=== PATIENT | female | born 1980 | race Caucasian/White ===

== ENCOUNTER → 2016-10-30 | Outpatient (CLI) | payer OTHER ==
[2016-10-31 08:24] LABS: ESTIMATED AVERAGE GLUCOSE 97 mg/dl; HA1C FLAG Normal (Normal)
--- NOTE | 2016-11-06 17:16 | CODING QUERY MEDICAL NECESSITY ---
SUPPORTING DIAGNOSIS NEEDED A supporting diagnosis is required for the test/procedure performed on this patient in order for us to be reimbursed by the patient's insurance. Please provide a supporting diagnosis for the following test/procedure listed below next to the test name along with your signature. *If there is no additional diagnosis for this patient that would support the following test/procedure please document that below next to the test/procedure. Test(s)/Procedure(s) that require a supporting diagnosis: * HEMOGLOBIN A1C DIAGNOSIS: Provider Signature: Date: Thank you Tosha Kauffman Tixie ([employer] Information Management Once completed, please kindly fax back to [phone] For questions please call [phone]
== END | disposition home or self-care (01) ==
LOC: C.LABPVFM 14:17
PROVIDERS: ATTEND Neuromusculoskeletal Medicine & OMM
DX: Z00.00 Encounter for general adult medical examination without abnormal findings (principal)

== ENCOUNTER 2016-12-23 09:20 | Emergency (ER) | payer OTHER ==
[~2016-12-23] VITALS: Ht 167.6 cm; Wt 154.2 kg
[2016-12-23 09:26] VITALS: Ht 167.6 cm; Wt 154.2 kg
[2016-12-23] MEDS ORDERED: ACETAMINOPHEN 500 MG TAB PO STA (09:40)
[2016-12-23] MEDS ORDERED: FOLI-29 PO (09:59)
[2016-12-23] MEDS ORDERED: MONT1TAB3 PO (09:59)
[2016-12-23] MEDS ORDERED: ESCI1TAB10 PO (09:59)
[2016-12-23] MEDS ORDERED: TOPI200T14 PO (09:59)
[2016-12-23] MEDS ORDERED: METO50TA16 PO (09:59)
--- NOTE | 2016-12-23 10:19 | DIAGNOSTIC IMAGING REPORT ---
L KNEE 3 VIEWS CLINICAL HISTORY: Left lower extremity pain. COMPARISON: None FINDINGS: Alignment of the left knee is in anatomic. No fracture or suspicious osseous lesion is identified. There may be a small left knee joint effusion. Minimal joint space narrowing and mild osteophytosis within the medial and patellofemoral compartments is noted. IMPRESSION: 1. No acute fracture. 2. Possible small left knee joint effusion. 3. Mild osteoarthritis within the medial and patellofemoral compartments of the left knee. Electronically signed by: Nick Silverman M.D. 12/23/2016 10:18 AM Dictated Date/Time: 12/23/2016 10:16 AM
--- NOTE | 2016-12-23 11:47 | DIAGNOSTIC IMAGING REPORT ---
LEFT LOWER EXTREMITY VENOUS DOPPLER CLINICAL HISTORY: Lower extremity pain. COMPARISON STUDY: No previous studies for comparison. TECHNIQUE: Sonography of the deep venous system of the left lower extremity was performed. Compression and augmentation were evaluated. FINDINGS: The left common femoral, superficial femoral and popliteal veins were compressible. Augmentation was normal. Flow was shown within the deep calf vessels. Note is made of a small left popliteal cyst measures 4.5 x 2.8 x 1 cm. IMPRESSION: 1. No evidence of deep venous thrombus within the left lower extremity. 2. Small left popliteal cyst. Electronically signed by: Nick Silverman M.D. 12/23/2016 11:45 AM Dictated Date/Time: 12/23/2016 11:44 AM
[2016-12-23 12:07] VITALS: TEMP 36.6
[2016-12-23 12:08] VITALS: BP 145/90; PULSE 89; O2SAT 96
--- NOTE | 2016-12-23 13:39 | EMERGENCY ROOM VISIT NOTE ---
History Report prepared by Jaylin: Sherry Lux Under the Supervision of: Nati AwanO. First contact with patient: 09:30 Chief Complaint: LEG PAIN,LEG INJURY Stated Complaint: LEFT LEG PAIN History of Present Illness The patient is a 36 year old female who presents to the Emergency Room with complaints of constant left leg pain beginning last night. She states that she heard a "pop" last night in the back of her knee. She has been having pain since that time. She has a history of a DVT and states that her leg also "popped " at that time. The patient is currently complaining of pain in the back of her left knee and in her left calf. She rates her current pain as a 9/10 in severity. Bending her knee exacerbates her pain. She was taking ibuprofen last night. The patient was on blood thinners for 6 months after her previous DVT, but is not currently on any blood thinners. Pt denies headache, change in vision , fevers, chest pain, shortness of breath, nausea, vomiting, diarrhea, pain with urination, and melena. Source of History: patient Onset: last night Position: knee (left) Symptom Intensity: 9/10 Timing: constant Modifying Factors (Worsening): other (bending knee) Modifying Factors (Relieving): ibuprofen Associated Symptoms: No fevers, No headache, No chest pain, No SOB, No nausea, No vomiting, No melena, No diarrhea, No urinary symptoms Review of Systems See HPI for pertinent positives & negatives. A total of 10 systems reviewed and were otherwise negative. Past Medical & Surgical Medical Problems: (1) DVT (deep venous thrombosis) Family History No pertinent history stated. Social History Smoking Status: Never Smoker Occupation Status: employed Current/Historical Medications Scheduled Escitalopram Oxalate (Lexapro), 20 MG PO DAILY Folic Acid-Vit B2-Vit B6-Vit B (Folgard), 1 TAB PO DAILY Metoprolol Tartrate (Lopressor) (Lopressor), 50 MG PO DAILY Montelukast Sodium (Singulair), 10 MG PO DAILY Topiramate (Topamax), 200 MG PO DAILY Allergies Coded Allergies: No Known Allergies (Unverified , 12/23/16) Physical Exam Vital Signs Date Time Temp Pulse Resp B/P (MAP) Pulse Ox O2 Delivery O2 Flow Rate FiO2 10/18/17 12:08 89 145/90 96 Room Air 12/23/16 12:07 36.6 68 18 145/90 98 12/23/16 09:26 36.6 68 18 160/107 98 Room Air Physical Exam GENERAL: alert, sitting up in bed, disheveled, well appearing, well nourished, no distress, non-toxic EYE EXAM: normal conjunctiva OROPHARYNX: no exudate, no erythema, lips, buccal mucosa, and tongue normal and mucous membranes are moist NECK: supple, no nuchal rigidity, no adenopathy, non-tender LUNGS: Clear to auscultation. Normal chest wall mechanics HEART: no murmurs, S1 normal and S2 normal ABDOMEN: abdomen soft, non-tender, normo-active bowel sounds, no masses, no rebound or guarding. SKIN: no rashes and no bruising UPPER EXTREMITIES: upper extremities are grossly normal. LOWER EXTREMITIES: TTP over the left knee no appreciable swelling, moderate pain with flexion beyond 40 degrees, quadriceps/hamstrings intact flexion/ extension of hip/knee/ankle/EHL 5/5. Skin intact, calves are equal bilaterally, ambulates without difficulty. NEURO EXAM: Normal sensorium Medical Decision & Procedures ER Provider Diagnostic Interpretation: Radiology results as stated below per my review and the radiologist's interpretation: LEFT LOWER EXTREMITY VENOUS DOPPLER CLINICAL HISTORY: Lower extremity pain. COMPARISON STUDY: No previous studies for comparison. TECHNIQUE: Sonography of the deep venous system of the left lower extremity was performed. Compression and augmentation were evaluated. FINDINGS: The left common femoral, superficial femoral and popliteal veins were compressible. Augmentation was normal. Flow was shown within the deep calf vessels. Note is made of a small left popliteal cyst measures 4.5 x 2.8 x 1 cm. IMPRESSION: 1. No evidence of deep venous thrombus within the left lower extremity. 2. Small left popliteal cyst. Electronically signed by: Nick Silverman M.D. 12/23/2016 11:45 AM Dictated Date/Time: 12/23/2016 11:44 AM L KNEE 3 VIEWS CLINICAL HISTORY: Left lower extremity pain. COMPARISON: None FINDINGS: Alignment of the left knee is in anatomic. No fracture or suspicious osseous lesion is identified. There may be a small left knee joint effusion. Minimal joint space narrowing and mild osteophytosis within the medial and patellofemoral compartments is noted. IMPRESSION: 1. No acute fracture. 2. Possible small left knee joint effusion. 3. Mild osteoarthritis within the medial and patellofemoral compartments of the left knee. Electronically signed by: Nick Silverman M.D. 12/23/2016 10:18 AM Dictated Date/Time: 12/23/2016 10:16 AM Medications Administered Medications (Trade) Dose Ordered Sig/Sourav Route Start Time Stop Time Status Last Admin Dose Admin Acetaminophen (Tylenol Tab) 1,000 mg NOW STAT PO 12/23/16 09:40 12/23/16 09:41 DC 12/23/16 09:52 1,000 MG ED Course ED COURSE: Vital signs were reviewed and showed hypertensive. The patients medical record was reviewed The above diagnostic studies were performed and reviewed. ED treatments and interventions as stated above. 0930: The patient was evaluated in room A9B. A complete history and physical examination was performed. 0940: Tylenol 1000 mg PO 1214: Upon reevaluation, the patient is feeling better and resting comfortably. I discussed my findings with the patient and she understands and agrees with the treatment plan. Based on the patients age, coexisting illnesses, exam and lab findings the decision to treat as an outpatient was made. The patient remained stable while under my care. The patient appeared well at the time of discharge. Medical Decision Differential diagnosis: Etiologies such as fracture, dislocation, neurovascular compromise, compartment syndrome, soft tissue injury, as well as others were entertained. Patient is a 36-year-old female who presents to ER with left knee pain following hearing a pop yesterday. She is completely neurologically and vascular intact. X-rays show no obvious fractures. Duplex performed per her request and shows no clots. She has a cyst in the popliteal fossa. Patient was updated at bedside. She was discharged follow-up with PCP. Instructed to take Tylenol and Motrin as needed for pain. Discussed with Pt concerning signs and symptoms to watch out for. Pt was instructed to follow up with their PCP and discussed with the patient their option to return to the ED at anytime for persistent or worsening symptoms. The appropriate anticipatory guidance and out- patient management, including indications for return to the emergency department , were explained at length to the patient and understood. Medication Reconcilliation Current Medication List: was personally reviewed by me Blood Pressure Screening Patient's blood pressure: Elevated blood pressure Blood pressure disposition: Elevated BP felt to be situational Impression Primary Impression: Leg pain Scribe Attestation The scribe's documentation has been prepared under my direction and personally reviewed by me in its entirety. I confirm that the note above accurately reflects all work, treatment, procedures, and medical decision making performed by me. Departure Information Dispostion Home / Self-Care Referrals No Doctor, Assigned (PCP) Forms HOME CARE DOCUMENTATION FORM, IMPORTANT VISIT INFORMATION Patient Instructions ED Knee Pain [facility], [facility] Additional Instructions Please follow up with your primary care doctor with in the next 24 hours. Any worsening of your symptoms, please return to the ED immediately. This includes any fevers greater than 100.4, worsening pain, weakness or numbness in your leg , or any other concerning signs or symptoms from your standpoint. Please take Tylenol or Motrin as needed for pain. Problem Qualifiers Primary Impression: Leg pain Laterality: left Qualified Codes: M79.605 - Pain in left leg
== END 2016-12-23 12:08 | disposition home or self-care (01) ==
LOC: C.EDB 09:22 → C.EDA 12:08
DX: M79.605 Pain in left leg (principal); Z86.718 Personal history of other venous thrombosis and embolism; Z79.899 Other long term (current) drug therapy

== ENCOUNTER → 2017-01-13 | Outpatient (CLI) | payer OTHER ==
[~2017-01-13] MED LIST: ESCI1TAB10 PO; FOLI-29 PO; METO50TA16 PO; MONT1TAB3 PO; TOPI200T14 PO
--- NOTE | 2017-01-13 12:18 | DIAGNOSTIC IMAGING REPORT ---
HEAD WITHOUT CONTRAST (CT) CLINICAL HISTORY: 36 years-old Female presenting with constant migraine headaches for the past 2 months, frontal and occipital pain. TECHNIQUE: Multidetector CT imaging of the head was performed without the use of intravenous contrast. IV contrast: None. A dose lowering technique was used consistent with the principles of ALARA (as low as reasonably achievable). COMPARISON: None. CT DOSE (mGy.cm): The estimated cumulative dose is 558.98 mGy.cm. FINDINGS: Advertising Editor topogram: Unremarkable. Ventricles and sulci normal in size. Brain parenchyma normal in appearance with preserved orosco-white differentiation. No mass effect or midline shift. No hemorrhage or acute territorial infarct. No extra-axial fluid collection. Paranasal sinuses and mastoid air cells clear. Calvarium intact. IMPRESSION: 1. No acute intracranial pathology. Electronically signed by: Beltran Elena M.D. 01/13/2017 12:17 PM Dictated Date/Time: 01/13/2017 12:15 PM
== END | disposition home or self-care (01) ==
LOC: C.CTS 11:58
PROVIDERS: ATTEND Family Medicine
DX: G43.909 Migraine, unspecified, not intractable, without status migrainosus (principal)

== ENCOUNTER 2017-02-17 13:07 | Emergency (ER) | payer OTHER ==
[~2017-02-17] VITALS: Ht 167.6 cm; Wt 148.7 kg
[2017-02-17 13:11] VITALS: TEMP 36.6; Ht 167.6 cm; Wt 148.7 kg
[2017-02-17] MEDS ORDERED: SODIUM CHLORIDE 0.9% 500ML 500 ML IV STA (13:18)
[2017-02-17 14:00] LABS: BASO % 0.4 %; BASO ABS # 0.03 K/uL (0-0.2); COMPLETE YES; EOS % 2.2 %; HEMATOCRIT 43.8 % (37-47); IG% 0.2 %; LYMPH % 32.2 %; LYMPH ABS # 2.68 K/uL (1.2-3.4); MEAN CELL VOLUME 91.4 fL (80-100); MEAN CORPUSCULAR HEMOGLOBIN 32.4 pg (25-34); MEAN CORPUSCULAR HGB CONC 35.4 g/dl (32-36); MEAN PLATELET VOLUME 10.4 fL (7.4-10.4); MONO % 10.7 %; NEUT % 54.3 %; PLATELET COUNT 162 K/uL (130-400); RED BLOOD COUNT 4.79 M/uL (4.2-5.4); WHITE BLOOD COUNT 8.33 K/uL (4.8-10.8)
--- NOTE | 2017-02-17 14:14 | EMERGENCY ROOM VISIT NOTE ---
History Report prepared by Jaylin: Sarahy Burnett Under the Supervision of: Dr. Khloe Jane M.D. First contact with patient: 13:17 Chief Complaint: OTHER COMPLAINT Stated Complaint: SHAKING AND LIGHTHEADED History of Present Illness The patient is a 36 year old female who presents to the Emergency Room with complaints of persistent tremors that began 11 days ago. The patient reports that she was recently discharged from the [facility] 11 days ago. She states that while there, she had a medication change. The patient states that on January 22 she was started on Prozac and taken off Lexapro. She reports that since she got home she has been experiencing tremors, dizziness, lightheadedness, and a lack of appetite. The patient states that she saw her psychiatrist and notes that she was prescribed Wellbutrin for her anxiety. She states that she has not seen her psychiatrist since she started the Wellbutrin. The patient additionally notes that she saw her PCP on Wednesday. She states that neither or psychiatrist or PCP found a cause to her tremors. Source of History: patient Onset: 11 days ago Position: other (global) Quality: other (tremors) Timing: other (persistent) Note: Associated Symptoms: dizziness, lightheadedness, and a lack of appetite Review of Systems See HPI for pertinent positives & negatives. A total of 10 systems reviewed and were otherwise negative. Past Medical & Surgical Medical Problems: (1) Bronchitis (2) Depression (3) DVT (deep venous thrombosis) (4) Hypertension (5) Kidney stone Family History Diabetes mellitus Hypertension Kidney disease Kidney stones Social History Smoking Status: Never Smoker Smokeless Tobacco Use: No Alcohol Use: none Marital Status: Housing Status: lives with significant other Occupation Status: employed Current/Historical Medications Scheduled Amitriptyline HCl (Amitriptyline HCl), 10 MG PO QPM Cyanocobalamin (Vitamin B-12), 1,000 MCG PO DAILY Fluoxetine (Prozac), 20 MG PO DAILY Metoprolol Succ (Toprol Xl) (Toprol-Xl ), 100 MG PO DAILY Montelukast Sodium (Singulair), 10 MG PO DAILY Multivitamin (Multivitamin), 1 TAB PO DAILY Topiramate (Topamax), 200 MG PO DAILY Allergies Coded Allergies: No Known Allergies (Unverified , 12/23/16) Physical Exam Vital Signs Date Time Temp Pulse Resp B/P (MAP) Pulse Ox O2 Delivery O2 Flow Rate FiO2 02/17/17 15:46 68 20 127/79 98 02/17/17 14:49 61 20 113/81 100 Room Air 02/17/17 14:15 136/76 02/17/17 13:11 36.6 66 18 161/105 94 Room Air Physical Exam Vital signs reviewed. General: Well-appearing female, in no significant distress. HEENT: No scleral icterus, PERRLA, neck supple. Atraumatic. Cardiovascular: Regular rate and rhythm, no extra sounds. Pulmonary: Clear to auscultation bilaterally, normal work of breathing. Abdomen: Obese. Soft, nontender, nondistended, positive bowel sounds. Musculoskeletal: Atraumatic, no peripheral edema. Neurologic: Patient awake alert and oriented x 3, full strength in all 4 extremities. Cranial nerves 2 through 12 grossly intact. Skin: Warm, dry, no rash Medical Decision & Procedures Laboratory Results 02/17/17 13:49 Red Blood Count 4.79, Mean Corpuscular Volume 91.4, Mean Corpuscular Hemoglobin 32.4, Mean Corpuscular Hemoglobin Concent 35.4, Mean Platelet Volume 10.4, Neutrophils (%) (Auto) 54.3, Lymphocytes (%) (Auto) 32.2, Monocytes (%) (Auto) 10.7, Eosinophils (%) (Auto) 2.2, Basophils (%) (Auto) 0.4, Neutrophils # (Auto ) 4.53, Lymphocytes # (Auto) 2.68, Monocytes # (Auto) 0.89, Eosinophils # (Auto ) 0.18, Basophils # (Auto) 0.03 02/17/17 13:49 Test 02/17/17 13:49 02/17/17 13:55 White Blood Count 8.33 K/uL (4.8-10.8) Red Blood Count 4.79 M/uL (4.2-5.4) Hemoglobin 15.5 g/dL (12.0-16.0) Hematocrit 43.8 % (37-47) Mean Corpuscular Volume 91.4 fL (80-100) Mean Corpuscular Hemoglobin 32.4 pg (25-34) Mean Corpuscular Hemoglobin Concent 35.4 g/dl (32-36) Platelet Count 162 K/uL (130-400) Mean Platelet Volume 10.4 fL (7.4-10.4) Neutrophils (%) (Auto) 54.3 % Lymphocytes (%) (Auto) 32.2 % Monocytes (%) (Auto) 10.7 % Eosinophils (%) (Auto) 2.2 % Basophils (%) (Auto) 0.4 % Neutrophils # (Auto) 4.53 K/uL (1.4-6.5) Lymphocytes # (Auto) 2.68 K/uL (1.2-3.4) Monocytes # (Auto) 0.89 K/uL (0.11-0.59) Eosinophils # (Auto) 0.18 K/uL (0-0.5) Basophils # (Auto) 0.03 K/uL (0-0.2) RDW Standard Deviation 43.5 fL (36.4-46.3) RDW Coefficient of Variation 13.1 % (11.5-14.5) Immature Granulocyte % (Auto) 0.2 % Immature Granulocyte # (Auto) 0.02 K/uL (0.00-0.02) Anion Gap 5.0 mmol/L (3-11) Est Creatinine Clear Calc Drug Dose 168.3 ml/min Estimated GFR () 130.1 Estimated GFR (Non- 112.3 BUN/Creatinine Ratio 22.4 (10-20) Calcium Level 9.3 mg/dl (8.5-10.1) Magnesium Level 1.8 mg/dl (1.8-2.4) Total Bilirubin 0.3 mg/dl (0.2-1) Direct Bilirubin 0.1 mg/dl (0-0.2) Aspartate Amino Transf (AST/SGOT) 30 U/L (15-37) Alanine Aminotransferase (ALT/SGPT) 64 U/L (12-78) Alkaline Phosphatase 88 U/L (45-117) Total Protein 7.2 gm/dl (6.4-8.2) Albumin 3.4 gm/dl (3.4-5.0) Thyroid Stimulating Hormone (TSH) 3.110 uIu/ml (0.300-4.500) Salicylates Level < 1.7 mg/dl (2.8-20) Acetaminophen Level < 2 ug/ml (10-30) Ethyl Alcohol mg/dL < 3.0 mg/dl (0-3) Urine Color YELLOW Urine Appearance TURBID (CLEAR) Urine pH 8.0 (4.5-7.5) Urine Specific [place] 1.014 (1.000-1.030) Urine Protein NEG (NEG) Urine Glucose (UA) NEG (NEG) Urine Ketones NEG (NEG) Urine Occult Blood NEG (NEG) Urine Nitrite NEG (NEG) Urine Bilirubin NEG (NEG) Urine Urobilinogen NEG (NEG) Urine Leukocyte Esterase TRACE (NEG) Urine WBC (Auto) 1-5 /hpf (0-5) Urine RBC (Auto) 0-4 /hpf (0-4) Urine Hyaline Casts (Auto) 0 /lpf (0-5) Urine Epithelial Cells (Auto) >30 /lpf (0-5) Urine Bacteria (Auto) NEG (NEG) Urine Opiates Screen NEG (NEG) Urine Methadone, Qualitative NEG (NEG) Urine Barbiturates NEG (NEG) Urine Phencyclidine (PCP) Level NEG (NEG) Ur Amphetamine/Methamphetamine NEG (NEG) MDMA (Ecstasy) Screen NEG (NEG) Urine Benzodiazepines Screen NEG (NEG) Urine Cocaine Metabolite NEG (NEG) Urine Marijuana (THC) NEG (NEG) Laboratory results per my review. Medications Administered Medications (Trade) Dose Ordered Sig/Sourav Route Start Time Stop Time Status Last Admin Dose Admin Sodium Chloride 500 ml @ 999 mls/hr Q31M STAT IV 02/17/17 13:18 02/17/17 13:48 DC 02/17/17 13:18 999 MLS/HR ECG Indication: other (tremors, dizzy, lightheaded) Rate (beats per minute): 64 Rhythm: normal sinus Findings: no acute ischemic change, no ectopy, other (rightward axis, possible previous anterior infarct) ED Course 1318: Ordered Sodium Chloride 500 ml @ 999 mls/hr IV. 1329: Past medical records reviewed. The patient was evaluated in room C10. A complete history and physical examination was performed. 1455: I spoke to Dr. Nettles, Psychiatry at this time. She states that the story does not exactly add up, but states that the patient should be referred back to her psychiatrist. Medical Decision Differential diagnosis: Etiologies such as metabolic, infection, hypo/hyperglycemia, electrolyte abnormalities, cardiac sources, intracerebral event, toxicologic, neurologic, as well as others were entertained. This pt was evaluated and appeared to be in no distress. IV access was obtained and lab work was drawn. Pt was neurologically intact. Medications were reviewed. It seems that the pt has recently switched from lexapro to prozac. She saw her psychiatrist last week and wellbutrin was added. Pt maybe taking this on a prn basis, but details are hard to obtain from pt and family. Case management was consulted. They ran a med list review with the [employer] tech. Dr Nettles of psychiatry was consulted. She feels the med list is complex and many changes have been made lately. Pt was given detailed instructions on med administration with current prescriptions. She has an appt in 2 weeks with psychiatry. She will return to the ED for worsening of symptoms or any medical concerns. Medication Reconcilliation Current Medication List: was personally reviewed by me Blood Pressure Screening Patient's blood pressure: Elevated blood pressure Blood pressure disposition: Elevated BP felt to be situational, Did not require urgent referral Consults Time Called: 1450 Consulting Physician: Dr. Nettles, Psychiatry Returned Call: [phone] Nettles, Psychiatry at this time. She states that the story does not exactly add up, but states that the patient should be referred back to her psychiatrist. Impression Primary Impression: Anxiety Scribe Attestation The scribe's documentation has been prepared under my direction and personally reviewed by me in its entirety. I confirm that the note above accurately reflects all work, treatment, procedures, and medical decision making performed by me. Departure Information Referrals Ashley Pablo M.D. (PCP) Patient Instructions My [facility]
[2017-02-17 14:17] LABS: URINE APPEARANCE TURBID (CLEAR); URINE BILIRUBIN NEG (NEG); URINE COLOR YELLOW; URINE EPITHELIAL CELL AUTO >30 /lpf (0-5); URINE NITRITE NEG (NEG); URINE SPECIFIC GRAVITY 1.014 (1.000-1.030); UROBILINOGEN NEG (NEG); ZZUR CULT IF INDIC CLEAN CATCH NO
[2017-02-17 14:19] LABS: BUN/CREATININE RATIO 22.4 (10-20); CALCIUM 9.3 mg/dl (8.5-10.1); CREATININE 0.7 mg/dl (0.60-1.20); MAGNESIUM 1.8 mg/dl (1.8-2.4); POTASSIUM 3.8 mmol/L (3.5-5.1)
[2017-02-17 14:21] LABS: ACETAMINOPHEN < 2 ug/ml (10-30)
[2017-02-17 14:22] LABS: MANUAL MICROSCOPIC REQUIRED? NO; REVIEW REQ? NO
[2017-02-17] MEDS ORDERED: CYAN10005 PO (14:27)
[2017-02-17] MEDS ORDERED: MULT-506 PO (14:27)
[2017-02-17] MEDS ORDERED: METO100T14 PO (14:27)
[2017-02-17] MEDS ORDERED: FLUO20CA35 PO (14:27)
[2017-02-17 14:30] LABS: THYROID STIMULATING HORMONE 3.11 uIu/ml (0.300-4.500)
[2017-02-17 14:45] LABS: BENZODIAZEPINE, URINE NEG (NEG); COCAINE,URINE NEG (NEG); PHENCYCLIDINE, URINE NEG (NEG)
[2017-02-17] MEDS ORDERED: AMT10 PO (14:55)
[2017-02-17] MEDS ORDERED: METO100T44 PO (14:55)
[2017-02-17 15:46] VITALS: BP 127/79; PULSE 68; O2SAT 98
== END 2017-02-17 15:48 | disposition home or self-care (01) ==
LOC: C.EDB 13:10 → C.EDC 15:48
DX: F41.8 Other specified anxiety disorders (principal); R03.0 Elevated blood-pressure reading, without diagnosis of hypertension; Z83.3 Family history of diabetes mellitus; Z82.49 Family history of ischemic heart disease and other diseases of the circulatory system; Z84.1 Family history of disorders of kidney and ureter

== ENCOUNTER 2017-03-15 17:33 | Emergency (ER) | payer OTHER ==
[~2017-03-15] VITALS: Ht 167.6 cm; Wt 163.0 kg
[~2017-03-15 17:33] MED LIST changes: +AMT10 PO; +CYAN10005 PO; -ESCI1TAB10 PO; +FLUO20CA35 PO; -FOLI-29 PO; +METO100T44 PO; -METO50TA16 PO; +MULT-506 PO
[2017-03-15 17:51] VITALS: TEMP 36.5; Ht 167.6 cm; Wt 163.0 kg
--- NOTE | 2017-03-15 18:28 | DIAGNOSTIC IMAGING REPORT ---
LEFT HAND 3 VIEWS; LEFT WRIST 5 VIEWS CLINICAL HISTORY: Left wrist and hand injury. FINDINGS: 3 views of the left hand and 5 views of the left wrist are obtained. No prior studies are available for comparison at the time of dictation. The skeletal structures are well mineralized. There is no radiographic evidence of fracture involving the left wrist or hand. The joint spaces of the wrist and hand are well-maintained. There is mild negative ulnar variance. The overlying soft tissues are within normal limits. IMPRESSION: No fracture is seen involving the left wrist or hand. Electronically signed by: Moiz Perez M.D. 03/15/2017 6:27 PM Dictated Date/Time: 03/15/2017 6:25 PM
--- NOTE | 2017-03-15 18:34 | EMERGENCY ROOM VISIT NOTE ---
History First contact with patient: 17:54 Chief Complaint: WRIST PAIN Stated Complaint: LEFT WRIST PAIN AND SWOLLEN History of Present Illness The patient is a 37 year old female who presents to the Emergency Room with complaints of "left wrist pain is more". The patient states she was rapidly stabbing the ground that was frozen over with an umbrella in an attempt to break the ice, when the handle of the umbrella slipped causing her left wrist to turn suddenly. She notes pain in the left wrist that extends from the distal forearm into the hand. She rates her overall pain today as a 9/10. She denies chance of . Review of Systems A complete 6-point Review of Systems was discussed with the patient, with pertinent positives and negatives listed in the History of Present Illness. All remaining Review of Systems questions can be considered negative unless otherwise specified. Past Medical/Surgical History Medical Problems: (1) Bronchitis (2) Depression (3) DVT (deep venous thrombosis) (4) Hypertension (5) Kidney stone Family History Diabetes mellitus Hypertension Kidney disease Kidney stones Social History Smoking Status: Never Smoker Alcohol Use: none Marital Status: Housing Status: lives with significant other Occupation Status: employed Current/Historical Medications Scheduled Amitriptyline HCl (Amitriptyline HCl), 25 MG PO HS Bupropion (Wellbutrin), 75 MG PO QAM Cyanocobalamin (Vitamin B-12), 1,000 MCG PO DAILY Escitalopram Oxalate (Lexapro), 20 MG PO DAILY Metoprolol Succinate (Metoprolol Succinate ER), 50 MG PO DAILY Montelukast Sodium (Singulair), 10 MG PO DAILY Multivitamin (Multivitamin), 1 TAB PO DAILY Quetiapine Fumarate (Seroquel), 25 MG PO DAILY Topiramate (Topamax), 200 MG PO DAILY Trazodone Hcl (Trazodone), 50 MG PO HS Physical Exam Vital Signs Date Time Temp Pulse Resp B/P (MAP) Pulse Ox O2 Delivery O2 Flow Rate FiO2 03/15/17 18:56 60 18 134/65 100 03/15/17 17:51 36.5 68 20 148/85 99 Room Air Physical Exam VITAL SIGNS - Vital signs and nursing notes were reviewed. Stable. GENERAL -37-year-old male appearing his stated age who is in no acute distress. Communicates well with provider and answers questions appropriately. SKIN - Without rashes. No petechial rashes. Skin overlying the left arm is unremarkable. EXTREMITIES - No clubbing or peripheral cyanosis. There is tenderness to the distal ulna and scaphoid regions of the left wrist. This extends into the proximal hand. She is neurovascularly intact in this region. Medical Decision & Procedures ER Provider Diagnostic Interpretation: [~ rep ct add3]] LEFT HAND 3 VIEWS; LEFT WRIST 5 VIEWS CLINICAL HISTORY: Left wrist and hand injury. FINDINGS: 3 views of the left hand and 5 views of the left wrist are obtained. No prior studies are available for comparison at the time of dictation. The skeletal structures are well mineralized. There is no radiographic evidence of fracture involving the left wrist or hand. The joint spaces of the wrist and hand are well-maintained. There is mild negative ulnar variance. The overlying soft tissues are within normal limits. IMPRESSION: No fracture is seen involving the left wrist or hand. Electronically signed by: Moiz Perez M.D. 03/15/2017 6:27 PM Dictated Date/Time: 03/15/2017 6:25 PM Medical Decision Patient was seen and evaluated as above. She presents to us today with left hand wrist pain. X-ray was obtained. This reveals no acute fracture or dislocation. She'll be given a Velcro wrist lacer for suspected wrist sprain. She was also seen and evaluated by the attending physician. She declined pain medication. She is to follow up with family doctor/orthopedics if the pain persists. Number provided. She was educated upon management, educated upon worrisome symptoms in which to return, had questions and provided discharge, and was discharged home in good condition. In the evaluation and treatment of this patient, the following differential diagnoses were considered: Wrist Sprain, Wrist Fracture, Wrist Dislocation, Scapholunate Dissociation, Carpal Fracture, Metacarpal Fracture, Radial Styloid Process Fracture, Ulnar Styloid Process Fracture, or Carpal Tunnel Syndrome. Impression Primary Impression: Wrist pain, left Departure Information Dispostion Home / Self-Care Condition GOOD Referrals No Doctor, Assigned (PCP) Bebeto Brady MD Patient Instructions My [facility] Additional Instructions You have been treated in the Emergency Department for Wrist Pain. For pain control, you can use the following [id number] medicines: - Regular strength (325mg/tab) Tylenol (acetaminophen) 2 tabs every 4-6 hours as needed. Do not exceed 12 tablets in a 24 hour period. Avoid taking more than 3 grams (3000 mg) of Tylenol per day. This includes any other sources of acetaminophen you may take on a regular basis. - Regular strength (200 mg/tab) Advil (ibuprofen) 1-2 tabs every 4-6 hours as needed. Do not exceed a dose of 3200 mg per day. If this is a recent injury (<24 hrs), ice can be applied to the area of pain for the first 3 days to help decrease pain and inflammation. You have been provided the number for an Orthopaedic Surgeon. You should call this number as soon as possible to establish a follow-up visit from today's Emergency Department visit. Keep the brace/splint in place until evaluated by Orthopedics. Return to the Emergency Department if your current symptoms worsen despite treatment course outlined above, or if you develop any of the following symptoms : intractable pain despite aforementioned treatment course or new onset of numbness or tingling of the fingers. LEFT HAND 3 VIEWS; LEFT WRIST 5 VIEWS CLINICAL HISTORY: Left wrist and hand injury. FINDINGS: 3 views of the left hand and 5 views of the left wrist are obtained. No prior studies are available for comparison at the time of dictation. The skeletal structures are well mineralized. There is no radiographic evidence of fracture involving the left wrist or hand. The joint spaces of the wrist and hand are well-maintained. There is mild negative ulnar variance. The overlying soft tissues are within normal limits.
--- NOTE | 2017-03-15 18:41 | EMERGENCY ROOM VISIT NOTE ---
ED Visit Note First contact with patient: 17:54 I did evaluate and examine this patient myself. I did guide management for the patient. I agree with the APC's assessment as discussed. Please see the APC's dictation for further details. I did independently review the x-rays. There is no evidence of fracture dislocation. The patient was placed in a wrist lacer and will follow up with her doctor.
[2017-03-15 18:56] VITALS: BP 134/65; PULSE 60; O2SAT 100
[2017-03-15] MEDS ORDERED: BUPR75TA20 PO (18:57)
[2017-03-15] MEDS ORDERED: AMT/25 PO (19:03)
[2017-03-15] MEDS ORDERED: QUET1TAB30 PO (19:07)
[2017-03-15] MEDS ORDERED: TPRSR/50 PO (19:10)
[2017-03-15] MEDS ORDERED: TRAZ50TA35 PO (19:12)
[2017-03-15] MEDS ORDERED: ESCI1TAB10 PO (19:14)
== END 2017-03-15 18:57 | disposition home or self-care (01) ==
LOC: C.EDB 17:34 → C.EDD 18:57
DX: M25.532 Pain in left wrist (principal); X50.1XXA Overexertion from prolonged static or awkward postures, initial encounter; Y92.9 Unspecified place or not applicable; F32.9 Major depressive disorder, single episode, unspecified; Z86.718 Personal history of other venous thrombosis and embolism; I10 Essential (primary) hypertension; Z87.442 Personal history of urinary calculi; Z83.3 Family history of diabetes mellitus; Z82.49 Family history of ischemic heart disease and other diseases of the circulatory system; Z84.1 Family history of disorders of kidney and ureter; Z79.899 Other long term (current) drug therapy

== ENCOUNTER 2017-06-25 21:16 | Emergency (ER) | payer OTHER ==
[~2017-06-25] VITALS: Ht 167.6 cm; Wt 161.1 kg
[~2017-06-25 21:16] MED LIST changes: -METO100T7 PO
[2017-06-25 21:21] VITALS: TEMP 36.6; Ht 167.6 cm; Wt 161.1 kg
--- NOTE | 2017-06-25 23:09 | EMERGENCY ROOM VISIT NOTE ---
History First contact with patient: 22:40 Chief Complaint: FLANK PAIN Stated Complaint: RIGHT SIDE PAIN, GOES INTO BACK History of Present Illness The patient is a 37 year old female with hx of HTN, depression, MTHFR gene mutation, LLE DVT in 2012 who presents to the Emergency Room with complaints of RLQ abdominal and R flank pain x 3 days. Pain is sharp, 9/10 and intermittent. A /w nausea x 5 days (described as morning sickness), chronic constipation (last BM 2 days ago - hard, brown and non-bloody). Denies any fever, cp, sob, vomiting , dysuria, hematuria, HILL/dizziness, numbness/weakness. Denies any trauma/falls. Went to chiropractor yesterday who put hips back in place after which she felt better but pain returned shortly thereafter. Note: reports had coils placed in fallopian tubes in 2011 Review of Systems see below Constitutional: No fever Respiratory: No shortness of breath Cardiovascular: No chest pain Abdomen: + pain, + nausea, + constipation, No vomiting Genitourinary - Female: No dysuria, No hematuria Past Medical/Surgical History Medical Problems: (1) Bronchitis (2) Depression (3) DVT (deep venous thrombosis) (4) Hypertension (5) Kidney stone (6) MTHFR mutation (7) TIA (transient ischemic attack) Family History Diabetes mellitus Hypertension Kidney disease Kidney stones Social History Smoking Status: Never Smoker Alcohol Use: none Marital Status: Housing Status: lives with significant other Occupation Status: employed Current/Historical Medications Scheduled Amitriptyline HCl (Amitriptyline HCl), 25 MG PO HS Bupropion (Wellbutrin), 75 MG PO AMHS Cyanocobalamin (Vitamin B-12), 1,000 MCG PO HS Metoprolol Succinate (Toprol Xl), 100 MG PO QAM Montelukast Sodium (Singulair), 10 MG PO HS Multivitamin (Multivitamin), 1 TAB PO HS Quetiapine Fumarate (Seroquel), 25 MG PO QAM Topiramate (Topamax), 200 MG PO HS Physical Exam Vital Signs Date Time Temp Pulse Resp B/P (MAP) Pulse Ox O2 Delivery O2 Flow Rate FiO2 06/26/17 00:52 60 15 155/89 93 Room Air 06/25/17 21:21 36.6 80 18 150/91 99 Room Air Physical Exam see below General Appearance: no apparent distress Head: normocephalic, atraumatic Eyes: normal inspection ENT: normal ENT inspection Neck: supple Respiratory/Chest: lungs clear, normal breath sounds Cardiovascular: regular rate, rhythm, no murmur Abdomen / GI: normal bowel sounds, soft, + tenderness (RLQ, RUQ, LLQ) Back: normal inspection, + right CVA tenderness, + pertinent finding (TTP of lumbar spinous processes; no paraspinal TTP) Extremities: normal inspection Neurologic/Psych: no motor/sensory deficits, alert, oriented x 3 Medical Decision & Procedures Laboratory Results 06/25/17 23:40 Red Blood Count 4.77, Mean Corpuscular Volume 93.7, Mean Corpuscular Hemoglobin 31.9, Mean Corpuscular Hemoglobin Concent 34.0, Mean Platelet Volume 10.4, Neutrophils (%) (Auto) 41.7, Lymphocytes (%) (Auto) 45.6, Monocytes (%) (Auto) 9.0, Eosinophils (%) (Auto) 2.8, Basophils (%) (Auto) 0.5, Neutrophils # (Auto) 3.11, Lymphocytes # (Auto) 3.41, Monocytes # (Auto) 0.67, Eosinophils # (Auto) 0.21, Basophils # (Auto) 0.04 06/25/17 23:40 Test 06/25/17 22:22 06/25/17 23:40 Urine Color YELLOW Urine Appearance CLEAR (CLEAR) Urine pH 6.5 (4.5-7.5) Urine Specific [place] 1.022 (1.000-1.030) Urine Protein NEG (NEG) Urine Glucose (UA) NEG (NEG) Urine Ketones NEG (NEG) Urine Occult Blood NEG (NEG) Urine Nitrite NEG (NEG) Urine Bilirubin NEG (NEG) Urine Urobilinogen NEG (NEG) Urine Leukocyte Esterase SMALL (NEG) Urine WBC (Auto) 5-10 /hpf (0-5) Urine RBC (Auto) 0-4 /hpf (0-4) Urine Hyaline Casts (Auto) 1-5 /lpf (0-5) Urine Epithelial Cells (Auto) >30 /lpf (0-5) Urine Bacteria (Auto) 1+ (NEG) White Blood Count 7.47 K/uL (4.8-10.8) Red Blood Count 4.77 M/uL (4.2-5.4) Hemoglobin 15.2 g/dL (12.0-16.0) Hematocrit 44.7 % (37-47) Mean Corpuscular Volume 93.7 fL (80-100) Mean Corpuscular Hemoglobin 31.9 pg (25-34) Mean Corpuscular Hemoglobin Concent 34.0 g/dl (32-36) Platelet Count 168 K/uL (130-400) Mean Platelet Volume 10.4 fL (7.4-10.4) Neutrophils (%) (Auto) 41.7 % Lymphocytes (%) (Auto) 45.6 % Monocytes (%) (Auto) 9.0 % Eosinophils (%) (Auto) 2.8 % Basophils (%) (Auto) 0.5 % Neutrophils # (Auto) 3.11 K/uL (1.4-6.5) Lymphocytes # (Auto) 3.41 K/uL (1.2-3.4) Monocytes # (Auto) 0.67 K/uL (0.11-0.59) Eosinophils # (Auto) 0.21 K/uL (0-0.5) Basophils # (Auto) 0.04 K/uL (0-0.2) RDW Standard Deviation 45.7 fL (36.4-46.3) RDW Coefficient of Variation 13.3 % (11.5-14.5) Immature Granulocyte % (Auto) 0.4 % Immature Granulocyte # (Auto) 0.03 K/uL (0.00-0.02) Anion Gap 5.0 mmol/L (3-11) Est Creatinine Clear Calc Drug Dose 147.9 ml/min Estimated GFR () 105.1 Estimated GFR (Non- 90.7 BUN/Creatinine Ratio 18.4 (10-20) Calcium Level 9.1 mg/dl (8.5-10.1) Total Bilirubin 0.4 mg/dl (0.2-1) Direct Bilirubin < 0.1 mg/dl (0-0.2) Aspartate Amino Transf (AST/SGOT) 42 U/L (15-37) Alanine Aminotransferase (ALT/SGPT) 81 U/L (12-78) Alkaline Phosphatase 95 U/L (45-117) Total Protein 7.3 gm/dl (6.4-8.2) Albumin 3.5 gm/dl (3.4-5.0) Lipase 182 U/L (73-393) Human Chorionic Gonadotropin, Qual NEG (NEG) Medications Administered Medications (Trade) Dose Ordered Sig/Sourav Route Start Time Stop Time Status Last Admin Dose Admin Ketorolac Tromethamine (Toradol Inj) 30 mg NOW STAT IV 06/26/17 00:42 06/26/17 00:43 DC 06/26/17 00:50 30 MG Medical Decision 37 year old female with hx of HTN, depression, MTHFR gene mutation, LLE DVT in 2012 who presents to the Emergency Room with complaints of RLQ abdominal and R flank pain x 3 days. Associated with nausea, and constipation. Based on history and exam findings, concerning for constipation vs. nephrolithiasis vs. hydronephrosis vs. appendicitis vs. cholecystitis vs. lumbar strain -Ordered CT abdomen for stone w/ot contrast: no acute infectious/inflammatory changes in abdomen or pelvis, non-obstructing L renal calculi, hepatic steatosis , hepatomegaly and splenomegaly -Ordered CBC, BMP, LFT, Lipase and beta-HCG: AST 42 and ALT 81 mildly elevated likely chronic in the setting of hepatic steatosis, hepatomegaly and splenomegaly (pt reports being aware of hepatomegaly) -Ordered UA: likely contaminated mild Leuk estrase, 5-10 WBC, >30 epi cells and 1+ bacteria -Pt re-evaluated at 23:56 and notified of results -Received Toradol 30mg IV at 0050 -Stable for discharge with PCP follow up on Wednesday for likely chronic CT and lab findings Medication Reconcilliation Current Medication List: was personally reviewed by me Blood Pressure Screening Patient's blood pressure: Elevated blood pressure Impression Primary Impression: Abdominal pain Resident Involvement: Resident Care Provided Care Provided: Adult ED Departure Information Dispostion Home / Self-Care Condition GOOD Referrals Ashley Pablo M.D. (PCP) [facility] Instructions [facility]
[2017-06-25] MEDS ORDERED: METO100T7 PO (23:27)
[2017-06-26 00:03] LABS: BASO % 0.5 %; BASO ABS # 0.04 K/uL (0-0.2); EOS % 2.8 %; EOS ABS # 0.21 K/uL (0-0.5); HEMATOCRIT 44.7 % (37-47); HEMOGLOBIN 15.2 g/dL (12.0-16.0); IG# 0.03 K/uL (0.00-0.02); LYMPH % 45.6 %; LYMPH ABS # 3.41 K/uL (1.2-3.4); MEAN CELL VOLUME 93.7 fL (80-100); MEAN CORPUSCULAR HEMOGLOBIN 31.9 pg (25-34); MEAN PLATELET VOLUME 10.4 fL (7.4-10.4); MONO ABS # 0.67 K/uL (0.11-0.59); NEUT % 41.7 %; NEUT ABS # 3.11 K/uL (1.4-6.5); PLATELET COUNT 168 K/uL (130-400); RED CELL DISTRIBUTION WIDTH CV 13.3 % (11.5-14.5); RED CELL DISTRIBUTION WIDTH SD 45.7 fL (36.4-46.3); WHITE BLOOD COUNT 7.47 K/uL (4.8-10.8)
[2017-06-26 00:16] LABS: ALBUMIN 3.5 gm/dl (3.4-5.0); ALT/SGPT 81 U/L (12-78); AST/SGOT 42 U/L (15-37); BLOOD UREA NITROGEN 15 mg/dl (7-18); CALCIUM 9.1 mg/dl (8.5-10.1); CARBON DIOXIDE 28 mmol/L (21-32); CREATININE 0.83 mg/dl (0.60-1.20); GLUCOSE 89 mg/dl (70-99); LIPASE 182 U/L (73-393); POTASSIUM 3.6 mmol/L (3.5-5.1); SODIUM 142 mmol/L (136-145)
[2017-06-26 00:18] LABS: ALKALINE PHOSPHATASE 95 U/L (45-117); TOTAL PROTEIN 7.3 gm/dl (6.4-8.2)
--- NOTE | 2017-06-26 00:27 | DIAGNOSTIC IMAGING REPORT ---
CT SCAN OF THE ABDOMEN AND PELVIS WITHOUT IV CONTRAST CLINICAL HISTORY: Right lower quadrant abdominal pain. COMPARISON STUDY: No priors. TECHNIQUE: CT scan of the abdomen and pelvis is performed from the lung bases to the proximal femora. Images are reviewed in the axial, sagittal, and coronal planes. IV contrast was not administered for this examination. A dose lowering technique was utilized adhering to the principles of ALARA. The examination is degraded by large body habitus, and by streak artifact from the body wall abutting the CT gantry. CT DOSE: 2193.28 mGy.cm FINDINGS: Lung bases: The heart is normal in size and without pericardial effusion. The lung bases are clear. Liver: The unenhanced liver is enlarged, measuring 19 cm in length. The liver demonstrates diffusely diminished attenuation consistent with hepatic steatosis. Fatty sparing is seen adjacent to gallbladder fossa. There is no intrahepatic biliary ductal dilatation. Gallbladder: Unremarkable. Spleen: The spleen is mildly enlarged measuring 13.6 cm in length. Pancreas: Unremarkable. Adrenal glands: Unremarkable. Kidneys: The unenhanced kidneys are normal in size and without hydronephrosis. There are least 3 small nonobstructing left renal calculi measuring up to 4 mm. No right renal calculi are identified. There is no evidence of contour deforming renal mass lesion. Abdominal vasculature: The abdominal aorta is normal in course and caliber. Bowel: The small bowel and colon are normal in course and caliber. The appendix is well-visualized and normal. Peritoneum: There is no intraperitoneal free air or abdominal ascites. Lymphadenopathy: None. Pelvic viscera: The bladder is normal as visualized. Uterus and adnexa are normal as imaged noting bilateral ovarian follicles. Postoperative change is noted in the pelvis. Skeletal structures: No lytic or blastic lesions are seen. Sclerotic change is noted in the sacroiliac joints. IMPRESSION: 1. There are no acute infectious or inflammatory findings in the abdomen or pelvis. 2. Nonobstructing left renal calculi. 3. Hepatomegaly and hepatic steatosis. 4. Splenomegaly. Electronically signed by: Moiz Perez M.D. 06/26/2017 12:25 AM Dictated Date/Time: 06/26/2017 12:20 AM
[2017-06-26] MEDS ORDERED: KETOROLAC TROMETHAMINE 30 MG/ML VIAL IV STA (00:42)
--- NOTE | 2017-06-26 00:48 | EMERGENCY ROOM VISIT NOTE ---
History Report prepared by Jaylin: Benigno Villa Under the Supervision of: Dr. Jacques Fair D.O. First contact with patient: 22:40 Chief Complaint: FLANK PAIN Stated Complaint: RIGHT SIDE PAIN, GOES INTO BACK History of Present Illness The patient is a 37 year old female who presents to the Emergency Room with complaints of intermittent RLQ abdominal pain beginning two days ago. Per resident, the patient describes her symptoms as a sharp pain. She states that the patient is also experiencing lower back pain, right flank pain, nausea for the last five days, and constipation. She notes that the patient is not experiencing any vomiting, urinary symptoms, numbness, and weakness. She reports that the patient has a history of hypertension, MTHFR, a DVT in 2012, depression, and had coils placed in her tubes in 2011. She states that the patient had a bowel movement two days ago, and notes that the patient's bowel movement was normal and did not contain any blood. She reports that the patient saw a chiropractor yesterday, which seemed to show improvement of her symptoms. She states that the patient's symptoms have since returned. She notes that the patient is unsure if she is . She reports that the patient rates her pain as a 9/10. Source of History: patient, other (resident) Onset: two days ago Position: abdomen (RLQ) Symptom Intensity: 9/10 Quality: sharp Timing: intermittent Modifying Factors (Relieving): other (visiting a chiropractor) Associated Symptoms: + nausea, + back pain (lower), No vomiting, No urinary symptoms, No weakness, No numbness Note: Per resident, the patient is also experiencing right flank pain and constipation. Review of Systems See HPI for pertinent positives & negatives. A total of 10 systems reviewed and were otherwise negative. Past Medical & Surgical Medical Problems: (1) Bronchitis (2) Depression (3) DVT (deep venous thrombosis) (4) Hypertension (5) Kidney stone (6) MTHFR mutation (7) TIA (transient ischemic attack) Family History Diabetes mellitus Hypertension Kidney disease Kidney stones Social History Smoking Status: Never Smoker Alcohol Use: none Marital Status: Housing Status: lives with family Occupation Status: disabled Current/Historical Medications Scheduled Amitriptyline HCl (Amitriptyline HCl), 25 MG PO HS Bupropion (Wellbutrin), 75 MG PO AMHS Cyanocobalamin (Vitamin B-12), 1,000 MCG PO HS Metoprolol Succinate (Toprol Xl), 100 MG PO QAM Montelukast Sodium (Singulair), 10 MG PO HS Multivitamin (Multivitamin), 1 TAB PO HS Quetiapine Fumarate (Seroquel), 25 MG PO QAM Topiramate (Topamax), 200 MG PO HS Allergies Coded Allergies: No Known Allergies (Unverified , 06/25/17) Physical Exam Vital Signs Date Time Temp Pulse Resp B/P (MAP) Pulse Ox O2 Delivery O2 Flow Rate FiO2 06/26/17 00:52 60 15 155/89 93 Room Air 06/25/17 21:21 36.6 80 18 150/91 99 Room Air Physical Exam CONSTITUTIONAL/VITAL SIGNS: Reviewed / noted above. GENERAL: Non-toxic in appearance. INTEGUMENTARY: Warm, dry, and [place]. HEAD: Normocephalic. EYES: without scleral icterus or trauma. ENT/OROPHARYNX: clear and moist. LYMPHADENOPATHY/NECK: Is supple without lymphadenopathy or meningismus. RESPIRATORY: Lungs clear and equal. CARDIOVASCULAR: Regular rate and rhythm. GI/ABDOMEN: Soft. No organomegaly or pulsatile mass. No rebound or guarding. Normal bowel sounds. Mild diffuse abdominal tenderness. EXTREMITIES: Warm and well perfused. BACK: Right CVA tenderness. NEUROLOGICAL: Intact without focal deficits. PSYCHIATRIC: normal affect. MUSCULOSKELETAL: Normally developed with good muscle tone. Medical Decision & Procedures ER Provider Diagnostic Interpretation: Radiology results as stated below per my review and radiologist interpretation: CT SCAN OF THE ABDOMEN AND PELVIS WITHOUT IV CONTRAST FINDINGS: Lung bases: The heart is normal in size and without pericardial effusion. The lung bases are clear. Liver: The unenhanced liver is enlarged, measuring 19 cm in length. The liver demonstrates diffusely diminished attenuation consistent with hepatic steatosis. Fatty sparing is seen adjacent to gallbladder fossa. There is no intrahepatic biliary ductal dilatation. Gallbladder: Unremarkable. Spleen: The spleen is mildly enlarged measuring 13.6 cm in length. Pancreas: Unremarkable. Adrenal glands: Unremarkable. Kidneys: The unenhanced kidneys are normal in size and without hydronephrosis. There are least 3 small nonobstructing left renal calculi measuring up to 4 mm. No right renal calculi are identified. There is no evidence of contour deforming renal mass lesion. Abdominal vasculature: The abdominal aorta is normal in course and caliber. Bowel: The small bowel and colon are normal in course and caliber. The appendix is well-visualized and normal. Peritoneum: There is no intraperitoneal free air or abdominal ascites. Lymphadenopathy: None. Pelvic viscera: The bladder is normal as visualized. Uterus and adnexa are normal as imaged noting bilateral ovarian follicles. Postoperative change is noted in the pelvis. Skeletal structures: No lytic or blastic lesions are seen. Sclerotic change is noted in the sacroiliac joints. IMPRESSION: 1. There are no acute infectious or inflammatory findings in the abdomen or pelvis. 2. Nonobstructing left renal calculi. 3. Hepatomegaly and hepatic steatosis. 4. Splenomegaly. Electronically signed by: Moiz Perez M.D. 06/26/2017 12:25 AM Laboratory Results 06/25/17 23:40 Red Blood Count 4.77, Mean Corpuscular Volume 93.7, Mean Corpuscular Hemoglobin 31.9, Mean Corpuscular Hemoglobin Concent 34.0, Mean Platelet Volume 10.4, Neutrophils (%) (Auto) 41.7, Lymphocytes (%) (Auto) 45.6, Monocytes (%) (Auto) 9.0, Eosinophils (%) (Auto) 2.8, Basophils (%) (Auto) 0.5, Neutrophils # (Auto) 3.11, Lymphocytes # (Auto) 3.41, Monocytes # (Auto) 0.67, Eosinophils # (Auto) 0.21, Basophils # (Auto) 0.04 06/25/17 23:40 Test 06/25/17 22:22 06/25/17 23:40 Urine Color YELLOW Urine Appearance CLEAR (CLEAR) Urine pH 6.5 (4.5-7.5) Urine Specific [place] 1.022 (1.000-1.030) Urine Protein NEG (NEG) Urine Glucose (UA) NEG (NEG) Urine Ketones NEG (NEG) Urine Occult Blood NEG (NEG) Urine Nitrite NEG (NEG) Urine Bilirubin NEG (NEG) Urine Urobilinogen NEG (NEG) Urine Leukocyte Esterase SMALL (NEG) Urine WBC (Auto) 5-10 /hpf (0-5) Urine RBC (Auto) 0-4 /hpf (0-4) Urine Hyaline Casts (Auto) 1-5 /lpf (0-5) Urine Epithelial Cells (Auto) >30 /lpf (0-5) Urine Bacteria (Auto) 1+ (NEG) White Blood Count 7.47 K/uL (4.8-10.8) Red Blood Count 4.77 M/uL (4.2-5.4) Hemoglobin 15.2 g/dL (12.0-16.0) Hematocrit 44.7 % (37-47) Mean Corpuscular Volume 93.7 fL (80-100) Mean Corpuscular Hemoglobin 31.9 pg (25-34) Mean Corpuscular Hemoglobin Concent 34.0 g/dl (32-36) Platelet Count 168 K/uL (130-400) Mean Platelet Volume 10.4 fL (7.4-10.4) Neutrophils (%) (Auto) 41.7 % Lymphocytes (%) (Auto) 45.6 % Monocytes (%) (Auto) 9.0 % Eosinophils (%) (Auto) 2.8 % Basophils (%) (Auto) 0.5 % Neutrophils # (Auto) 3.11 K/uL (1.4-6.5) Lymphocytes # (Auto) 3.41 K/uL (1.2-3.4) Monocytes # (Auto) 0.67 K/uL (0.11-0.59) Eosinophils # (Auto) 0.21 K/uL (0-0.5) Basophils # (Auto) 0.04 K/uL (0-0.2) RDW Standard Deviation 45.7 fL (36.4-46.3) RDW Coefficient of Variation 13.3 % (11.5-14.5) Immature Granulocyte % (Auto) 0.4 % Immature Granulocyte # (Auto) 0.03 K/uL (0.00-0.02) Anion Gap 5.0 mmol/L (3-11) Est Creatinine Clear Calc Drug Dose 147.9 ml/min Estimated GFR () 105.1 Estimated GFR (Non- 90.7 BUN/Creatinine Ratio 18.4 (10-20) Calcium Level 9.1 mg/dl (8.5-10.1) Total Bilirubin 0.4 mg/dl (0.2-1) Direct Bilirubin < 0.1 mg/dl (0-0.2) Aspartate Amino Transf (AST/SGOT) 42 U/L (15-37) Alanine Aminotransferase (ALT/SGPT) 81 U/L (12-78) Alkaline Phosphatase 95 U/L (45-117) Total Protein 7.3 gm/dl (6.4-8.2) Albumin 3.5 gm/dl (3.4-5.0) Lipase 182 U/L (73-393) Human Chorionic Gonadotropin, Qual NEG (NEG) Laboratory results as stated above per my review. Medications Administered Medications (Trade) Dose Ordered Sig/Sourav Route Start Time Stop Time Status Last Admin Dose Admin Ketorolac Tromethamine (Toradol Inj) 30 mg NOW STAT IV 06/26/17 00:42 06/26/17 00:43 DC 06/26/17 00:50 30 MG ED Course 2305: Discussed the patient's case with the resident, Luh Escobedo. 0032: Previous medical records were reviewed. The patient was evaluated in room B5. A complete history and physical examination was performed. 0042: Toradol 30mg IV 0054: On reevaluation, the patient is stable. I discussed the results and findings with the patient. She verbalized agreement of the treatment plan. The patient was discharged home. Medical Decision Differential considered: pancreatitis, hepatitis, acute cholecystitis, AAA, UTI , pyelonephritis, kidney stones, appendicitis, diverticulitis, shingles, bowel obstruction, mesenteric ischemia, intussusception,hernia, testicular torsion, ovarian torsion, ruptured ovarian cyst,ectopic , . This is a 37-year-old female who presents to the ED with a chief complaint of right-sided flank abdominal pain as well as some right lower abdominal pain for the past couple of days. She also reported some lower back pain that is sharp in nature. She had some morning nausea for the past couple of days. Her last bowel movement was 2 days ago. The patient's physical exam reveals some mild diffuse abdominal tenderness as well as some right-sided CVA tenderness. Her vital signs are stable. CT scan of the abdomen pelvis reveals no acute process. There is noted to be some splenomegaly. Otherwise chronic findings. CBC and complete metabolic panel were unremarkable and a urine did not show infection. test is negative. The patient was told the results of the test. She was treated with IV Toradol. She is felt to be stable for discharge. Medication Reconcilliation Current Medication List: was personally reviewed by me Blood Pressure Screening Patient's blood pressure: Elevated blood pressure Blood pressure disposition: Elevated BP felt to be situational Impression Primary Impression: Abdominal pain Scribe Attestation The scribe's documentation has been prepared under my direction and personally reviewed by me in its entirety. I confirm that the note above accurately reflects all work, treatment, procedures, and medical decision making performed by me. Departure Information Dispostion Home / Self-Care Referrals Ashley Palbo M.D. (PCP) Forms HOME CARE DOCUMENTATION FORM, IMPORTANT VISIT INFORMATION Patient Instructions My [facility] Additional Instructions
[2017-06-26 00:52] VITALS: BP 155/89; PULSE 60; O2SAT 93
== END 2017-06-26 00:59 | disposition home or self-care (01) ==
LOC: C.EDB 21:19
DX: R10.31 Right lower quadrant pain (principal); R16.1 Splenomegaly, not elsewhere classified; I10 Essential (primary) hypertension; F32.9 Major depressive disorder, single episode, unspecified; Z86.718 Personal history of other venous thrombosis and embolism; Z98.890 Other specified postprocedural states; Z87.442 Personal history of urinary calculi; Z86.73 Personal history of transient ischemic attack (TIA), and cerebral infarction without residual deficits; Z83.3 Family history of diabetes mellitus; Z84.1 Family history of disorders of kidney and ureter; Z82.49 Family history of ischemic heart disease and other diseases of the circulatory system; Z79.899 Other long term (current) drug therapy

== ENCOUNTER → 2017-06-25 | Outpatient (CLI) | payer OTHER ==
[~2017-06-25] MED LIST changes: +AMT/25 PO; -AMT10 PO; +BUPR75TA20 PO; +ESCI1TAB10 PO; -FLUO20CA35 PO; -METO100T44 PO; +METO100T7 PO; +QUET1TAB30 PO; +TPRSR/50 PO; +TRAZ50TA35 PO
[2017-06-25 14:28] LABS: ALBUMIN 3.1 gm/dl (3.4-5.0); ALT/SGPT 77 U/L (12-78); AST/SGOT 42 U/L (15-37); BLOOD UREA NITROGEN 18 mg/dl (7-18); CALCIUM 8.9 mg/dl (8.5-10.1); CARBON DIOXIDE 24 mmol/L (21-32); CREATININE 0.88 mg/dl (0.60-1.20); GLUCOSE 149 mg/dl (70-99)
[2017-06-25 14:43] LABS: ALKALINE PHOSPHATASE 103 U/L (45-117); CHOLESTEROL 166 mg/dl (0-200); LDL CHOLESTEROL CALCULATED 79 mg/dl; POTASSIUM 3.9 mmol/L (3.5-5.1); SODIUM 143 mmol/L (136-145); TOTAL PROTEIN 6.7 gm/dl (6.4-8.2)
== END | disposition home or self-care (01) ==
LOC: C.LABPVFM 07:56
PROVIDERS: ATTEND Family Medicine
DX: I10 Essential (primary) hypertension (principal); Z13.220 Encounter for screening for lipoid disorders